=== PATIENT | female | born 1995 | race Caucasian/White ===

== ENCOUNTER 2023-04-23 03:33 | Emergency (ER) | payer BC, SELFPAY ==
--- NOTE | ~2023-04-23 | CT_ITS ---
EXAMINATION: CT ABDOMEN AND PELVIS WITHOUT CONTRAST CLINICAL INFORMATION: Flank pain. Hydronephrosis on ultrasound. Recurrent infections. COMPARISON: Renal ultrasound from 04/23/2023 TECHNIQUE: Multidetector volumetric imaging was performed from the superior aspect of the liver through the pubic symphysis. Sagittal and coronal reformatted images were obtained on the technologist's workstation. This CT examination was performed using dose optimization techniques as appropriate, variously including the following: *Automated exposure control *Adjustment of mA and/or kV according to patient size (this includes techniques or standardized protocols for targeted exams where dose is matched to indication/reason for exam; i.e. extremities or head) *Use of iterative reconstruction technique DLP: 1029 mGy-cm FINDINGS: LUNG BASES: No pulmonary consolidation or pleural effusion. HEPATOBILIARY: Liver has normal size, shape, and attenuation. Gallbladder has a normal appearance. No dilated bile ducts. PANCREAS: No edema, pancreatic ductal dilatation or mass. SPLEEN: Normal. ADRENAL GLANDS: Normal. KIDNEYS AND URETERS: Kidneys are normal in size. No perinephric fluid collection. Mild right hydroureteronephrosis is caused by a 0.3 cm stone located just proximal to the ureterovesical junction. There are no stones within the right renal calyces. The left kidney has small < 0.3 cm stones at its mid and lower pole. The left ureter is unremarkable. BLADDER: Normal. BOWEL AND PERITONEUM: Stomach and small bowel are unremarkable. No dilated loops. No evidence of appendicitis. There are a few diverticula of the sigmoid colon. No overt colonic wall thickening or mesenteric fat stranding. No free fluid or pneumoperitoneum. ABDOMINAL WALL: Unremarkable. VASCULATURE: Unremarkable. LYMPH NODES: No pathologic sized lymph nodes in the abdomen or pelvis. No inguinal lymphadenopathy. PELVIC VISCERA: No evidence of uterine or adnexal mass. No pelvic free fluid. MUSCULOSKELETAL: Normal. CT/CT abdomen pelvis wo IV con IMPRESSION: * Mild right hydroureteronephrosis is caused by a 0.3 cm stone within the distal ureter. * There are two small stones of the left kidney. Otherwise, left kidney is unremarkable.
--- NOTE | ~2023-04-23 | US_ITS ---
EXAMINATION: US RETROPERITONEAL COMPLETE (RENAL) CLINICAL INFORMATION: Recurrent urinary tract infection and flank pain. COMPARISON: None available. TECHNIQUE: Real-time imaging of the kidneys and bladder. FINDINGS: RIGHT KIDNEY: 10.7 x 6.1 x 5.6 cm (SAG x AP x TRV). The kidney is normal in size, contour, and echogenicity. Renal cortical thickness is normal. No calculi or focal parenchymal lesions. Mild hydronephrosis. LEFT KIDNEY: 11.4 x 5.7 x 4.6 cm (SAG x AP x TRV). The kidney is normal in size, contour, and echogenicity. Renal cortical thickness is normal. No calculi or focal parenchymal lesions. No hydronephrosis. BLADDER: Normal. US/US retroperitoneal comp IMPRESSION: * No sonographic evidence of renal stones. * Mild right hydronephrosis is present.
[2023-04-23 03:49] VITALS: BP 123/60; PULSE 75; RESP 16; TEMP 36.7; O2SAT 98; BMI 45.5
--- NOTE | 2023-04-23 04:06 | ED_ITS ---
HPI - Female Genitourinary General Chief complaint: Urogenital-Female Stated complaint: UTI Time Seen by Provider: 04/23/23 03:59 Source: patient Mode of arrival: ambulatory Limitations: no limitations History of Present Illness HPI Narrative: 28 yo female with PMH recurrent UTI since February treated at [facility]. She was first on amoxicillin then bactrim. She was just put on Macrobid yesterday and has taken two doses. She has had intermittent nausea, chills and back pain. She is coming in as she feels the macrobid really isn't helping. She has not been told about any resistance or urine cultures MD elicited complaint: dysuria and UTI Pertinent past history: recurrent UTIs Onset (ago): month(s) (2.5) Location of symptoms: suprapubic Severity: moderate Quality of pain: burning Consistency: intermittent Vaginal discharge: none Vaginal bleeding: none Urinary symptoms: Dysuria, Urgency and Frequency Exacerbating factors: urination Relieving factors: none Associated symptoms: back pain Treatment prior to arrival: other (macrobid) Sexual activity: No Related Data Allergies Allergy/AdvReac Type Severity Reaction Status Date / Time thimerosal Allergy Itchy Eyes Verified 04/23/23 03:49 Review of Systems 2 Review of Systems: Constitutional : No Fever, No Chills, No Fatigue ENT/Mouth : No sore throat, No Rhinorrhea Eyes: No Eye Pain, No Swelling, No Redness Cardiovascular : No Chest Pain, No SOB, No Dyspnea on Exertion Respiratory : No Cough, No Sputum Gastrointestinal : No Nausea, No Vomiting, No Diarrhea, No abdominal Pain Genitourinary : pos Dysuria, pos Urinary Frequency, No Hematuria, Musculoskeletal : No joint pain, No Myalgias, No Joint Swelling, pos back pain Skin : No Skin Lesions, No rash Neuro : No Weakness, No Numbness, No Dizziness, no Headache Psych : No Anxiety/Panic, No Depression Heme/Lymph: No Bruising, No Bleeding,No Lymphadenopathy Endocrine : No Polyuria, No Polydipsia All other systems reviewed and are negative [facility] Past Medical History Attestation statement: The following information was validated with the patient. Medical History UTI (urinary tract infection) Social History Social History (Updated 04/23/23 @ 04:50 by Dominique Parham DO) Patient Tobacco Use Status: Never used Tobacco Smoked in Last 30 Days: No Use of substances other than those prescribed or required for medical reasons: No Advance Directives: No Patient : No Physical Exam 2 Vital Signs: Vital Signs: Last Vital Signs Temp 98.0 F 04/23/23 06:33 Pulse 64 04/23/23 06:33 Resp 16 04/23/23 06:33 BP 125/74 04/23/23 06:33 Pulse Ox 100 04/23/23 06:33 O2 Del Method Room Air 04/23/23 06:33 BMI result Body Mass Index 45.5 Appearance: Alert. Oriented X3. No acute distress. Eyes: Pupils equal, round and reactive to light. ENT: Pharynx normal. Neck: Normal inspection. Neck supple. CVS: Normal heart rate and rhythm. Pulses normal. Respiratory: No respiratory distress. Breath sounds normal. Abdomen: Soft and nontender. Skin: Skin warm and dry. Normal skin color. Normal skin turgor. Extremities: No lower extremity edema. No calf ttp Neuro: Oriented X 3. No motor deficit. No sensory deficit. Course Course Course Narrative: given hydro on US without ability to see stone will obtain basic labs and CT scan for stone Reevaluation(s) Reevaluation #1: signed out to Dr. Hernandez pending reads Medications Administered Discontinued Medications Generic Name Dose Route Start Last Admin Trade Name Freq PRN Reason Stop Dose Admin Ceftriaxone Sodium 1 gm/ 50 mls @ 100 mls/hr 04/23/23 04:22 04/23/23 05:21 Sodium Chloride IV 04/23/23 04:51 Infused ONCE ONE Infusion Medical Decision Making Medical Decision Making [facility] Narrative: 28 yo female with recurrent UTIs currently has had two doses of macrobid she returns with no improvement in symptoms - but no fevers, vomiting, she is able to tolerate PO. At this time will obtain renal and bladder US and then dose x 1 with IV ceftriaxone there is a high prob she has resistance. Urine culture sent off. Differential Diagnosis Differential Diagnoses: The differential diagnosis associated with the presentation includes UTI, renal colic, resistant bacteria Admission/Observation Consideration of admission/observation: Escalation of care including admission/observation considered no fevers, no vomiting, able to tolerate PO stable for outpatient management Lab Data [facility] Lab Attestation statement: I reviewed the patient's lab results. 04/23/23 06:08 04/23/23 06:08 Labs: Lab Results 04/23/23 04/23/23 Range/Units 04:02 06:08 WBC 10.1 (4.8-10.8) X10*3/uL RBC 5.07 (4.20-5.50) X10*6/uL Hgb 13.1 (12.0-16.0) g/dl Hct 40.2 (37.0-47.0) % MCV 79.3 L (80.0-98.0) fL MCH 25.8 L (27.0-33.0) pg MCHC 32.6 (31.0-35.0) g/dl RDW 14.6 (11.0-16.0) % Plt Count 328 (160-400) X10*3/uL MPV 9.8 (9.4-12.3) fL Immature Gran % (Auto) 0.2 (0.0-0.4) % Neut % (Auto) 60.3 (45-73) % Lymph % (Auto) 29.7 (20-40) % Miner % (Auto) 7.8 (2-11) % Eos % (Auto) 1.4 (0-4) % Baso % (Auto) 0.6 (0-2) % Lymph # (Auto) 3.0 (1.2-4.9) X10*3/uL Miner # (Auto) 0.8 (0.1-1.2) X10*3/uL Eos # (Auto) 0.1 (0.0-0.4) X10*3/uL Baso # (Auto) 0.1 (0.0-0.2) X10*3/uL Abs Immat Gran (auto) 0.02 (0.00-0.03) X10*3/uL Absolute Neuts (auto) 6.1 (2.0-8.3) x10*3/uL Absolute Nucleated RBC 0.000 (0.0-0.012) X10*3/uL Nucleated RBC % (auto) 0.0 (0.0-0.2) /100WBC Sodium 138 (135-145) mmol/L Potassium 3.6 (3.3-5.1) mmol/L Chloride 102 (96-108) mmol/L Carbon Dioxide 26 (22-29) mmol/L Anion Gap 14 (12-20) BUN 16 (9-16) mg/dL Creatinine 0.87 (0.5-1.4) mg/dL Estim Creat Clear Calc 114.2 Estimated GFR > 60 Random Glucose 75 (60-115) mg/dL Calcium 9.7 (8.4-10.2) mg/dL Urine Color [place] Urine Appearance Cloudy Urine pH [employer] Ur Specific [place] >= 1.030 H (1.005-1.025) Urine Protein 30 (1+) H (Neg-Trace) mg/dL Urine Glucose (UA) Negative (Negative) mg/dL Urine Ketones Negative (Negative) mg/dL Urine Blood Small (1+) H (Negative) Urine Nitrite Positive H (Negative) Ur Leukocyte Esterase Moderate (2+) H (Negative) Urine RBC 6-10 H (0-2) /HPF Urine WBC 0-5 (0-5) /HPF Ur Squamous Epith Cells 0-2 (0-2) /HPF Calcium Oxalate Crystal Present Urine Bacteria None Seen (None Seen) Hyaline Casts 0-2 (0-2) /LPF Urine Test NEGATIVE (NEGATIVE) Independent Interpretation I performed an independent interpretation of an: Ultrasound (R hydronephrosis) and CT Scan (?distal R ureteral stone) Radiology Impression Discussion of test interpretation with radiology: I have reviewed the radiologist's reading. Prescription Management I considered prescription management with: Other Discharge Plan Discharge Clinical Impression: Urinary tract infection Qualifiers: Urinary tract infection type: acute cystitis Hematuria presence: with hematuria Qualified Code(s): N30.01 - Acute cystitis with hematuria Patient Disposition: Home, Self-Care Instructions: Urinary Tract Infection in Women (ED) Additional Instructions: we will call you if the levofloxacin will not cover the bacteria in your urine this can take 48 hours. return for worsening symptoms, fevers, vomiting, or pain. stay hydrated and drink plenty of fluids stop the macrobid. start levofloxacin. Stand Alone Forms: Work/School Release
[2023-04-23 04:10] LABS: Appearance Urine Cloudy; Glucose Urine UA Negative (Negative); Leukocyte Esterase Urine Moderate (2+) (Negative); Nitrite Urine Positive (Negative); Specific Gravity - Urine >= 1.030 (1.005-1.025); UMIC TRIGGER UACC YES; Urine Blood Small (1+) (Negative); Urine Ketones Negative (Negative); Urine Protein 30 (1+) mg/dL (Neg-Trace)
[2023-04-23 04:11] LABS: UPreg QC Valid YES; Urine Pregnancy NEGATIVE (NEGATIVE)
[2023-04-23 04:12] LABS: Color Urine Orange
[2023-04-23 04:32] LABS: Bacteria Urine None Seen (None Seen); Calcium Oxalate Crystals Urine Present; Hyaline Casts Urine 0-2 /LPF (0-2); Squamous Epithelial Cell Urine 0-2 /HPF (0-2); UACC Culture Trigger YES; WBC Urine 0-5 /HPF (0-5)
[2023-04-23] MEDS: cefTRIAXone sodium 1 GM in 0.9 % Sodium Chloride 50 ML IV (04:32)
[2023-04-23 06:12] LABS: Basophils Absolute Auto 0.1 X10*3/uL (0.0-0.2); Basophils Percent Auto 0.6 % (0-2); Eosinophils Absolute Auto 0.1 X10*3/uL (0.0-0.4); Eosinophils Percent Auto 1.4 % (0-4); Hematocrit 40.2 % (37.0-47.0); Hemoglobin 13.1 g/dl (12.0-16.0); Imm Gran Abs Auto 0.02 X10*3/uL (0.00-0.03); Imm Gran Pct Auto 0.2 % (0.0-0.4); Lymphocytes Percent Auto 29.7 % (20-40); MANUAL DIFF FLAG NO; Mean Corpuscular HGB Conc 32.6 g/dl (31.0-35.0); Mean Corpuscular Hemoglobin 25.8 pg (27.0-33.0); Mean Corpuscular Volume 79.3 fL (80.0-98.0); Mean Platelet Volume 9.8 fL (9.4-12.3); Monocytes Absolute Auto 0.8 X10*3/uL (0.1-1.2); Monocytes Percent Auto 7.8 % (2-11); Neutrophils Absolute Auto 6.1 x10*3/uL (2.0-8.3); Neutrophils Percent Auto 60.3 % (45-73); Platelet Count 328 X10*3/uL (160-400); Red Blood Count 5.07 X10*6/uL (4.20-5.50); Red Cell Distribution Width 14.6 % (11.0-16.0); White Blood Count 10.1 X10*3/uL (4.8-10.8)
[2023-04-23 06:28] LABS: Anion Gap 14 (12-20); Blood Urea Nitrogen 16 mg/dL (9-16); Calcium 9.7 mg/dL (8.4-10.2); Carbon Dioxide 26 mmol/L (22-29); Chloride 102 mmol/L (96-108); Creatinine Clr Calc Pharmacy 114.2; Estimated Glomerular Filt Rate > 60; Glucose Random 75 mg/dL (60-115); Potassium 3.6 mmol/L (3.3-5.1); Sodium 138 mmol/L (135-145)
[2023-04-23 06:33] VITALS: BP 125/74; PULSE 64; RESP 16; TEMP 36.7; O2SAT 100
[2023-04-23 08:24] VITALS: BP 111/59; PULSE 75; RESP 16; TEMP 36.8; O2SAT 99
[2023-04-23] MEDS: cefuroxime axetiL 250 MG TABLET PO (10:20)
[2023-04-23 10:37] VITALS: BP 98/44; PULSE 76; RESP 18; O2SAT 98
== END 2023-04-23 10:42 | disposition home or self-care (01) ==
PROVIDERS: Emergency Medicine; Emergency Provider Emergency Medicine Emergency Medical Services
DX: N39.0 Urinary tract infection, site not specified (principal); N20.0 Calculus of kidney; R10.2 Pelvic and perineal pain; R30.0 Dysuria; R35.0 Frequency of micturition; R10.31 Right lower quadrant pain; Z79.899 Other long term (current) drug therapy
CPT/HCPCS: 36415; 74176; 76770; 80048; 81001; 81025; 85025; 87086; 96365; 99284; J0696